=== PATIENT | male | born 1985 | race Native Hawaiian/Other Pacific Islander ===

== ENCOUNTER 2016-08-18 10:49 | Inpatient (IN) ==
--- NOTE | 2016-08-18 14:59 | EKG Report ---
Test Performed on : 08/18/2016 2:42:43 PM Test Reason : possible seizures Blood Pressure : / mmHG Vent. Rate : 088 BPM Atrial Rate : 088 BPM P-R Int : 152 ms QRS Dur : 082 ms QT Int : 348 ms P-R-T Axes : 051 064 040 degrees QTc Int : 421 ms Normal sinus rhythm. Normal ECG No previous ECGs available Confirmed by Paramjit JAY, Les Reeves ([id number]) on 08/19/2016 5:50:02 PM
[2016-08-18] MEDS ORDERED: TYLENOL PO PRN ×2 (16:52→20:08)
[2016-08-18 17:33] LABS: MANUAL DIFF NEEDED? NO
[2016-08-18 17:35] LABS: BASO% 0.3 % (0.0-0.8); EOS# 0.16 X1000 (0.0-0.7); EOS% 1.4 % (0.0-10.0); HEMATOCRIT 47.8 % (42.0-52.0); IMM GRAN# 0.03 X1000 (0.0-0.04); IMM GRAN% 0.3 % (0.0-0.5); LYMPH# 2.82 X1000 (1.2-3.4); LYMPH% 24.5 % (20.5-51.1); MCH 26.6 PG (27-31); MCHC 33.5 g/dL (33-37); MCV 79.5 FL (81-99); MONO# 1.48 X1000 (0.11-0.59); MONO% 12.9 % (1.7-9.3); MPV 10.6 FL (7.4-10.4); NEUT% 60.6 % (42.2-75.2); PLT 239 X1000 (130-400); RBC 6.01 XMIL (4.7-6.1)
[2016-08-18 17:55] LABS: AGAP 11; ALBUMIN 4.2 g/dL (3.5-5.0); ALKALINE PHOSPHATASE 72 U/L (32-122); BUN 8 mg/dL (8-22); CALCIUM 9.6 mg/dL (8.8-10.2); CHLORIDE 98 mmol/L (98-107); COSMO 273; GOT 20 U/L (10-34); GPT 23 U/L (10-44); SODIUM 138 mmol/L (136-145); TCO2 29 mmol/L (25-35); TOTAL BILIRUBIN 0.33 mg/dL (0.20-1.00); TOTAL PROTEIN 7.8 g/dL (6.3-8.3)
--- NOTE | 2016-08-18 17:57 | HISTORY AND PHYSICAL ---
HISTORY OF PRESENT ILLNESS: Mr. Montez, who is a 30-year-old white gentleman, has been having some syncopal attacks, possible seizures. He was visiting his fcnsdzd-ok-imd in [place] and had 1 episode last night. He has been having these spells for at least the last 2 weeks. 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 Since then he had several episodes. He was supposed to see the neurologist in September, however he visits his fdcesir-gx-iiy and he has seizure. He has not been driving since then. In his childhood years some seizure episodes which really were not like grand mal, however he had some involuntary movements as a child, no history of head trauma. FAMILY HISTORY: He has a sister older than him and recently started having grand mal seizures after her 3rd . ALLERGIES: He is not allergic to any medications. MEDICATIONS: He does not take any medicine. SOCIAL HISTORY: He used to smoke very little. However does not smoke, but chews tobacco. He was drinking alcohol on a regular basis, sometimes up to a 12-pack per day, however for the last 40 days he has not been drinking at all. REVIEW OF SYSTEMS: Other than this, is noncontributory. The episodes are like he has some involuntary movements. He says he chews his tongue and he gets unconscious, however he does not wet his pants, and he gets out of the attack within about 2-3 minutes every time. It is very scary to him. He has stopped driving and stopped being around the cooking range and around heights. PHYSICAL EXAMINATION: VITAL SIGNS: Reveal temperature normal, pulse 86 per minute, respiratory rate 19 per minute, blood pressure 144/100. HEENT: Head normocephalic. Pupils PERRLA. Fundus examination normal. ENT examination unremarkable. NECK: Supple. JVP normal. There is no evidence of lymphadenopathy, thyroid enlargement. EXTREMITIES: No evidence of pedal edema, calf tenderness, anemia, cyanosis or clubbing. Pulses well felt. BREAST EXAM: Normal. CHEST: Normal to inspection. LUNGS: Clear on auscultation. HEART: PMI in the normal position. Heart sounds normal. No murmur, gallop or rub noted. ABDOMEN: Nondistended. Hernial orifices normal. No guarding, rigidity, free fluid, masses, or organomegaly. Bowel sounds normal. RECTAL: Deferred. 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 Cranial nerves normal. Motor and sensory system examination unremarkable. Deep tendon reflexes normal. Plantars downgoing. Skull and spine examination normal for age. No cerebellar signs or signs of meningeal irritation. LOCOMOTOR EXAM: Unremarkable. SKIN EXAM: Unremarkable. IMPRESSION: Possible syncopal attacks or questionable seizure episode. We will watch him on telemetry, get the neuro checks. His initial CT scan in the hospital in [place] was negative. He had a normal chest x-ray, and normal blood work. cc: Jayesh Carrasco MD
--- NOTE | 2016-08-18 18:49 | Diag Imaging Result Document ---
PROCEDURE NAME: CHEST-2 VIEWS - 08/18/2016 CHEST, 2 VIEWS: COMPARISON: No comparison films. The lungs are well expanded. The heart is not enlarged. The vessels are not distended. No pneumonia. No pleural effusions. IMPRESSION: No acute abnormality.
[2016-08-18] MEDS ORDERED: ROBITUSSIN-DM PO PRN (20:09)
[2016-08-18] MEDS ORDERED: VALIUM IV PRN (20:09)
--- NOTE | 2016-08-19 09:20 | PROGRESS NOTE ---
DATE: 08/19/2016 Mr. Montez's vital signs are stable. He has gone for an MRI of the head. He had an EEG done yesterday. He was evaluated by Dr. Whitaker who's suggestions are a 48 hour prolonged EEG and probably a Holter monitor. I probably will discuss with him and get a cardiology consult later on. Overall condition is otherwise unchanged. cc: Jayesh Carrasco MD
--- NOTE | 2016-08-19 09:45 | CONSULTATION ---
DATE OF CONSULTATION: 08/19/2016 Mr. Montez is 30 years old and he has had several recent episodes of unconsciousness, raising question of seizure. History from the patient, mostly managed with his attentive relative serving as park interpreter, is that he had some blackout spells in childhood and those resolved. He was never treated for seizure or other neurologic problems. Last episode was around age 11 or 12. He did not have any syncope, near syncope, lightheadedness, altered awareness, significant dizziness, or other problem until approximately 3 weeks ago. He had used ethanol to a substantial degree over a period of approximately 4 years but stopped that on his own at least 2 weeks before the first recent episode. He denies illicit drug use, other substance use, any regular prescription or over- the-counter medication use. Episodes in the last 3 weeks have occurred 8 or 9 times. Once there were 2 episodes in the same day; otherwise, episodes have been a few days apart. The episodes have never occurred in the morning, never during sleep, never when supine. One episode occurred in bed, as he was sitting up to get up from bed. Episodes have occurred while sitting, but may have occurred more often when standing. One episode lasted approximately a minute four days ago and all other episodes have resolved in several seconds. He reports each episode began with a vigorous single cough and he had realization that he was about to have an episode but the episode occurred so quickly he did not have time to report symptoms or to change his position. He would next realize he was "waking up". He has fallen to the floor a few times but there was never serious injury. He has slid out of a chair a few times. Episodes have never been associated with incontinence. He has bitten his tongue to the point of finding indentions on the tongue, but he has never bitten his tongue to the point of bleeding with an episode. There was never focal neurologic feature. Postictally, he has been immediately awake, alert, attentive, appropriate, and not impaired. There was never associated chest pain, shortness of breath, palpitation, nausea, or diaphoresis. Clinical Biostatistician has a cell phone video of an episode on August 02 of this year, reported to be the second attack. I viewed the video. This shows the patient walking acroos a small office and suddenly collapsing. There may be a little bit of rigidity but that is not certain. There was certainly no clonic activity. Within several seconds he was awake and was helped back up to a sitting position and then seemed to recover. Prior to this, there is no history of stroke, serious head injury, brain trauma , or serious brain infection. Workup here includes labs showing WBC count 11,500, normal chemistry profile. He has been afebrile. He has mildly elevated blood pressures 140s/100s. Heart rhythm has been 70s-80s. Cardiac monitoring is in place now. Electroencephalogram yesterday was unremarkable. There is report of recent brain imaging -CT scan in [place] reported unremarkable. Brain MRI is ordered here. IMPRESSION: Syncope, not impossible that this is seizure but seizure seem less likely based on the postural features, frequency of episodes, lack of typical postictal features. As discussed with Dr. Carrasco, we might consider treating him empirically with medicine to control seizures and we might consider ambulatory electroencephalogram. Might also consider cardiac rhythm monitoring. Thanks for asking me to see Mr. Montez. I told him to continue with his plans to be off of ethanol and to continue not driving. cc: MD Jayesh Parson III, MD MTDD
--- NOTE | 2016-08-19 10:19 | Diag Imaging Result Document ---
PROCEDURE NAME: MRI BRAIN W W/O CONTRAST - 08/18/2016 MRI BRAIN WITHOUT AND WITH INTRAVENOUS CONTRAST, 08/19/2016: COMPARISON: None. FINDINGS: The ventricles and sulci are normal in size and contour. No evidence of intracranial mass or hemorrhage. There is no abnormal signal. No restricted diffusion. No abnormal contrast enhancement. Midline structures including optic chiasm and pituitary are grossly normal. IMPRESSION: Negative exam.
[2016-08-19] MEDS ORDERED: KEPPRA PO SCH (11:15)
[2016-08-19 14:51] VITALS: BP 121/94
--- NOTE | 2016-08-20 14:08 | DISCHARGE SUMMARY ---
ADMISSION DATE: 08/18/2016 DISCHARGE DATE: 08/19/2016 Mr. Montez who is a 30-year-old, [place] gentleman comes to the office with a history of recent history of syncopal episode, possible seizure. LABORATORY DATA: In the hospital, CBC is unremarkable with mild leukocytosis, 11.50 was WBC count. Hemoglobin was 16. Platelet count was 239,000. Electrolytes are normal. BUN and creatinine normal. Blood sugar was 86. The liver enzymes were completely normal. Alkaline phosphatase, calcium levels are normal. His brain MRI was done which was negative exam. Chest x- ray was unremarkable. EEG has been done. Final report is not available. COURSE IN THE HOSPITAL: He was kept on telemetry. Did not reveal any evidence of arrhythmias. He had EKG which was normal. Mr. Montez had a consultation with Dr. Whitaker who saw him this morning. He suggested to put him on Keppra to see if this helps. This is unlikely to be seizures however this is definitely a syncopal episode and he has suggested that he probably needs a at 48 hour EEG which the patient will come back later on. He will be discharged today. He will be taking Keppra 500 mg b.i.d., given for 1 month and 5 refills. He is advised to avoid alcohol as well as stopped using the chewing tobacco. cc: Jayesh Carrasco MD
--- NOTE | 2016-08-23 18:08 | EEG REPORT ---
DATE: 08/18/2016 EEG NUMBER: [id number]. COMMENT: This is a digitally recorded EEG on a 30-year-old patient with episodes of unconsciousness preceded by coughing. FINDINGS: During waking, medium amplitude 10-11 Hz posterior rhythm is present symmetrically and reacts normally to eye opening. Background contains polymorphic and rhythmic theta frequencies over the frontal and central regions symmetrically. Photic stimulation produced some symmetric entrainment. Hyperventilation with good effort did not significantly alter the record. Drowsing occurred with appearance of more generalized slowing and attenuation of the posterior rhythm. Stage 2 sleep was recorded briefly at the end of the record with symmetric features. No definite epileptiform discharge was identified. INTERPRETATION: Normal EEG. CORRELATION: The absence of epileptiform discharges on a single EEG does not exclude a clinical diagnosis of seizures. cc: MD Jayesh Parson III, MD
== END 2016-08-19 19:34 | disposition home or self-care (01) ==
LOC: DIRADM 10:49 → 3N 13:22
PROVIDERS: ADMIT Internal Medicine; ATTEND Internal Medicine